=== PATIENT | female | born 1955 | race Caucasian/White ===

== ENCOUNTER 2017-10-10 10:02 | Emergency (ER) | payer SELFPAY | END 2017-10-10 13:55 | disposition left against medical advice (07) | LOC: E/R 10:02 | DX: Z53.21 Procedure and treatment not carried out due to patient leaving prior to being seen by health care provider (principal) ==

== ENCOUNTER 2017-10-10 14:10 | Emergency (ER) | payer SELFPAY | END 2017-10-10 21:30 | disposition left against medical advice (07) | LOC: E/R 14:10 | DX: Z53.21 Procedure and treatment not carried out due to patient leaving prior to being seen by health care provider (principal) ==

== ENCOUNTER 2018-04-30 16:52 | Inpatient (IN) | payer OTHER ==
[2018-04-30 17:17] LABS: ABNORMAL IP MESSAGE 1; HEMATOCRIT 33.6 % (37.0-47.0); HEMOGLOBIN 11.7 g/dl (12.0-16.0); MEAN CORPUSCULAR HEMOGLOBIN 31.6 pg (29.0-33.0); MEAN CORPUSCULAR HGB CONC 34.8 g/dl (32.0-37.0); MEAN CORPUSCULAR VOLUME 90.8 fl (82.0-101.0); MEAN PLATELET VOLUME 10.3 fl (7.4-10.4); PLATELET COUNT 446 10^3/UL (140-415); RED CELL DISTRIBUTION WIDTH 14.2 % (11.5-14.5)
[2018-04-30 17:17] LABS: WHITE BLOOD COUNT 17.6 10^3/ul (4.8-10.8)
[2018-04-30] MEDS: KETOROLAC 30 MG INJ IV (17:17)
[2018-04-30 17:24] LABS: ADD MAN DIFF? YES; POSITIVE DIFF @See below
[2018-04-30 17:38] LABS: ANION GAP 18 (8-16); BLOOD UREA NITROGEN 79 mg/dl (7-20); CALCIUM 9.8 mg/dl (8.4-10.2); CARBON DIOXIDE 21 mmol/L (21-31); CHLORIDE 101 mmol/L (97-110); GLUCOSE 94 mg/dl (70-220); POTASSIUM 4.5 mmol/L (3.5-5.1); SODIUM 135 mmol/L (135-144)
[2018-04-30 17:48] LABS: TROPONIN-I < 0.012 ng/ml (0.000-0.120)
[2018-04-30 18:07] LABS: BAND NEUTROPHILS #M 0.7 10^3/ul (0.0-0.6); BAND NEUTROPHILS % (M) 4 % (0-4); BASOPHIL #M 0.1 10^3/ul (0.0-0.0); BASOPHILS % (M) 1 % (0-2); EOSINOPHILS % (M) 4 % (0-7); GIANT THROMBO% (M) 2 % (0-0); LYMPHOCYTES #M 3.5 10^3/ul (0.8-2.9); LYMPHOCYTES % (M) 20 % (15-51); MONOCYTE #M 0.7 10^3/ul (0.3-0.9); MONOCYTES % (M) 4 % (0-11); PLATELET ESTIMATE NORMAL; SEG NEUT #M 11.9 10^3/ul (1.6-7.5); SEGMENTED NEUTROPHILS (M) % 67 % (39-77); SMUDGE%M 2 % (0-0)
[2018-04-30] MEDS: SOD CHLORIDE 0.9% 1,000 ML IV (18:57)
[2018-04-30] MEDS ORDERED: ONDANSETRON 4 MG INJ IV (19:00)
[2018-04-30] MEDS ORDERED: NACL 0.9% 3 ML SYG IV (20:00)
[2018-04-30] MEDS ORDERED: NITROGLYCERIN (SL) 0.4 MG TAB SL (20:00)
[2018-04-30] MEDS ORDERED: DOCUSATE SODIUM 100 MG CAP PO (20:00)
[2018-04-30 20:50] LABS: IRON 60 ug/dl (35-150)
[2018-04-30 20:59] LABS: % IRON SATURATION 24 % SAT (22-52); TOTAL IRON BINDING CAPACITY 254 ug/dl (241-421)
[2018-04-30 21:41] LABS: SODIUM,URINE RANDOM 23 mmol/L (30-90)
[2018-04-30 21:45] LABS: ADD UMIC YES; UR ASCORBIC ACID NEGATIVE (NEGATIVE); UR BACTERIA MANY /HPF (NONE SEEN); UR BILIRUBIN (Dip) NEGATIVE (NEGATIVE); UR BLOOD (Dip) 2+ mg/dL (NEGATIVE); UR CLARITY CLOUDY (CLEAR); UR COLOR YELLOW (YELLOW); UR GLUCOSE (Dip) NEGATIVE (NEGATIVE); UR KETONES (Dip) NEGATIVE (NEGATIVE); UR LEUKOCYTE ESTERASE (Dip) 3+ Leu/ul (NEGATIVE); UR NITRITE (Dip) NEGATIVE (NEGATIVE); UR NONSQUAMOUS EPITHELIAL CELL 1 /HPF (NONE SEEN); UR RBC 10 /HPF (0-5); UR SPECIFIC GRAVITY (Dip) 1.006 (1.003-1.030); UR SQUAMOUS EPITHELIAL CELL FEW /HPF (FEW); UR TOTAL PROTEIN (Dip) 1+ mg/dl (NEGATIVE); UR UROBILINOGEN (Dip) NEGATIVE (NEGATIVE); UR WBC 130 /HPF (0-5)
[2018-04-30 21:52] LABS: CREATININE,URINE RANDOM 40.19 mg/dl (20-320); PROTEIN/CREAT RATIO 1.21 RATIO
[2018-04-30 21:55] LABS: LACTIC ACID < 0.5 mmol/L (0.5-2.0)
[2018-04-30 22:10] LABS: OSMOLALITY 304 mOsm/kg (280-295); OSMOLALITY,URINE 203 mOsm/kg (250-1200)
[2018-05-01 00:59] LABS: CREATINE KINASE < 20 IU/L (23-200)
[2018-05-01 01:00] LABS: CK-MB 0.36 ng/ml (0.0-2.4); TROPONIN-I < 0.012 ng/ml (0.000-0.120)
[2018-05-01 06:15] LABS: ADD MAN DIFF? NO
[2018-05-01 06:18] LABS: WHITE BLOOD COUNT 17.5 10^3/ul (4.8-10.8)
[2018-05-01 06:18] LABS: BASOPHIL # 0.1 10^3/ul (0.0-0.1); BASOPHILS % 0.6 % (0.0-2.0); EOSINOPHILS # 0.3 10^3/ul (0.0-0.5); EOSINOPHILS % 1.8 % (0.0-7.0); HEMATOCRIT 30.7 % (37.0-47.0); HEMOGLOBIN 10.6 g/dl (12.0-16.0); LYMPHOCYTES # 1.9 10^3/ul (0.8-2.9); MEAN CORPUSCULAR HEMOGLOBIN 31.2 pg (29.0-33.0); MEAN CORPUSCULAR HGB CONC 34.5 g/dl (32.0-37.0); MEAN CORPUSCULAR VOLUME 90.3 fl (82.0-101.0); MONOCYTE # 0.9 10^3/ul (0.3-0.9); MONOCYTES % 5.3 % (0.0-11.0); NEUTROPHIL # 13.5 10^3/ul (1.6-7.5); NEUTROPHILS % 77.4 % (39.0-77.0); PLATELET COUNT 433 10^3/UL (140-415)
[2018-05-01] MEDS: CEFTRIAXONE 1 GM/50 ML (PMX) 50 ML IVPB (06:38)
[2018-05-01 06:50] LABS: ALANINE AMINOTRANSFERASE 20 IU/L (13-69); ALBUMIN 2.9 g/dl (3.3-4.9); ALBUMIN/GLOBULIN RATIO 0.82; ALKALINE PHOSPHATASE 183 IU/L (42-121); ANION GAP 15 (8-16); ASPARTATE AMINO TRANSFERASE 23 IU/L (15-46); BILIRUBIN,INDIRECT 0.2 mg/dl (0-1.1); BILIRUBIN,TOTAL 0.2 mg/dl (0.2-1.3); BLOOD UREA NITROGEN 68 mg/dl (7-20); CALCIUM 9.2 mg/dl (8.4-10.2); CARBON DIOXIDE 20 mmol/L (21-31); CHLORIDE 108 mmol/L (97-110); CHOL/HDL RATIO 10.1 RATIO; CHOLESTEROL 142 mg/dl (100-200); CREATININE 3.11 mg/dl (0.44-1.00); GLUCOSE 93 mg/dl (70-220); HDL CHOLESTEROL 14 mg/dl (35-98); LDL CHOLESTEROL,CALCULATED 94 mg/dl; POTASSIUM 4.8 mmol/L (3.5-5.1); SODIUM 138 mmol/L (135-144); TOTAL PROTEIN 6.4 g/dl (6.1-8.1); TRIGLYCERIDES 170 mg/dl (0-149)
[2018-05-01 06:51] LABS: CK-MB 0.27 ng/ml (0.0-2.4); TROPONIN-I < 0.012 ng/ml (0.000-0.120)
[2018-05-01 06:54] LABS: CREATINE KINASE < 20 IU/L (23-200)
[2018-05-01 06:57] LABS: HEMOGLOBIN A1C 5.3 % (0-5.9)
[2018-05-01] MEDS: ACETAMINOPHEN 325 MG TAB PO ×2 (10:02→18:48)
[2018-05-01] MEDS: SOD CHLORIDE 0.9% 1,000 ML IV ×2 (11:18→23:55)
[2018-05-01 13:11] LABS: ADD UMIC YES; UR ASCORBIC ACID NEGATIVE (NEGATIVE); UR BACTERIA FEW /HPF (NONE SEEN); UR BILIRUBIN (Dip) NEGATIVE (NEGATIVE); UR BLOOD (Dip) 2+ mg/dL (NEGATIVE); UR CLARITY CLOUDY (CLEAR); UR COLOR YELLOW (YELLOW); UR GLUCOSE (Dip) NEGATIVE (NEGATIVE); UR KETONES (Dip) NEGATIVE (NEGATIVE); UR LEUKOCYTE ESTERASE (Dip) 3+ Leu/ul (NEGATIVE); UR NITRITE (Dip) NEGATIVE (NEGATIVE); UR RBC 6 /HPF (0-5); UR SPECIFIC GRAVITY (Dip) 1.008 (1.003-1.030); UR SQUAMOUS EPITHELIAL CELL FEW /HPF (FEW); UR TOTAL PROTEIN (Dip) 1+ mg/dl (NEGATIVE); UR UROBILINOGEN (Dip) NEGATIVE (NEGATIVE); UR WBC 143 /HPF (0-5)
[2018-05-01 13:44] LABS: CREATININE,URINE RANDOM 42.11 mg/dl (20-320)
[2018-05-01 13:44] LABS: SODIUM,URINE RANDOM 32 mmol/L (30-90)
[2018-05-02] MEDS: CEFTRIAXONE 1 GM/50 ML (PMX) 50 ML IVPB (05:00)
[2018-05-02] MEDS: BISACODYL (EC) 5 MG TAB PO (05:05)
[2018-05-02 07:06] LABS: ADD MAN DIFF? NO
[2018-05-02] MEDS: ONDANSETRON 4 MG INJ IV (07:06)
[2018-05-02 07:12] LABS: BASOPHIL # 0.1 10^3/ul (0.0-0.1); BASOPHILS % 0.4 % (0.0-2.0); EOSINOPHILS # 0.1 10^3/ul (0.0-0.5); EOSINOPHILS % 0.7 % (0.0-7.0); HEMATOCRIT 30.6 % (37.0-47.0); HEMOGLOBIN 10.4 g/dl (12.0-16.0); LYMPHOCYTES # 1.6 10^3/ul (0.8-2.9); LYMPHOCYTES % 8.8 % (15.0-51.0); MEAN CORPUSCULAR HEMOGLOBIN 32.1 pg (29.0-33.0); MEAN CORPUSCULAR VOLUME 94.4 fl (82.0-101.0); MONOCYTES % 5.3 % (0.0-11.0); NEUTROPHIL # 15.2 10^3/ul (1.6-7.5); NEUTROPHILS % 82.5 % (39.0-77.0); PLATELET COUNT 459 10^3/UL (140-415); RED BLOOD COUNT 3.24 10^6/ul (4.20-5.40); RED CELL DISTRIBUTION WIDTH 13.9 % (11.5-14.5)
[2018-05-02 07:12] LABS: WHITE BLOOD COUNT 18.4 10^3/ul (4.8-10.8)
[2018-05-02 07:56] LABS: ANION GAP 14 (8-16); BLOOD UREA NITROGEN 47 mg/dl (7-20); CALCIUM 8.9 mg/dl (8.4-10.2); CARBON DIOXIDE 20 mmol/L (21-31); CHLORIDE 110 mmol/L (97-110); GLUCOSE 79 mg/dl (70-220); MAGNESIUM 1.9 mg/dl (1.7-2.5); PHOSPHORUS 4.3 mg/dl (2.5-4.9); POTASSIUM 4.4 mmol/L (3.5-5.1); SODIUM 140 mmol/L (135-144)
[2018-05-02] MEDS: ENOXAPARIN 30 MG/0.3 ML SYG SC (11:56)
[2018-05-02 13:36] LABS: ANA SCREEN NEGATIVE (NEGATIVE)
[2018-05-02] MEDS: SOD CHLORIDE 0.9% 1,000 ML IV (15:07)
[2018-05-02] MEDS: ACETAMINOPHEN 325 MG TAB PO ×2 (15:07→20:41)
[2018-05-02 16:42] LABS: CREATININE, RANDOM URINE 41 mg/dL (20-275); MICROALBUMIN 9.2 mg/dL; MICROALBUMIN/CREATININE RATIO 224 (<30)
[2018-05-03] MEDS: SOD CHLORIDE 0.9% 1,000 ML IV ×3 (02:30→18:54)
[2018-05-03] MEDS: CEFTRIAXONE 1 GM/50 ML (PMX) 50 ML IVPB (04:41)
[2018-05-03] MEDS: ACETAMINOPHEN 325 MG TAB PO ×3 (05:52→21:05)
[2018-05-03 07:48] LABS: ADD MAN DIFF? NO
[2018-05-03 07:56] LABS: WHITE BLOOD COUNT 17.4 10^3/ul (4.8-10.8)
[2018-05-03 07:56] LABS: BASOPHIL # 0.1 10^3/ul (0.0-0.1); BASOPHILS % 0.5 % (0.0-2.0); EOSINOPHILS # 0.2 10^3/ul (0.0-0.5); EOSINOPHILS % 0.9 % (0.0-7.0); HEMATOCRIT 29.8 % (37.0-47.0); HEMOGLOBIN 9.7 g/dl (12.0-16.0); LYMPHOCYTES # 1.8 10^3/ul (0.8-2.9); LYMPHOCYTES % 10.6 % (15.0-51.0); MEAN CORPUSCULAR HEMOGLOBIN 30.7 pg (29.0-33.0); MEAN CORPUSCULAR HGB CONC 32.6 g/dl (32.0-37.0); MEAN CORPUSCULAR VOLUME 94.3 fl (82.0-101.0); MONOCYTE # 0.9 10^3/ul (0.3-0.9); MONOCYTES % 5.2 % (0.0-11.0); NEUTROPHIL # 14.2 10^3/ul (1.6-7.5); NEUTROPHILS % 81.7 % (39.0-77.0); PLATELET COUNT 473 10^3/UL (140-415); RED BLOOD COUNT 3.16 10^6/ul (4.20-5.40); RED CELL DISTRIBUTION WIDTH 13.8 % (11.5-14.5)
[2018-05-03 08:24] LABS: ANION GAP 13 (8-16); BLOOD UREA NITROGEN 33 mg/dl (7-20); CALCIUM 8.7 mg/dl (8.4-10.2); CARBON DIOXIDE 20 mmol/L (21-31); CHLORIDE 112 mmol/L (97-110); CREATININE 1.93 mg/dl (0.44-1.00); GLUCOSE 100 mg/dl (70-220); MAGNESIUM 1.7 mg/dl (1.7-2.5); PHOSPHORUS 3.6 mg/dl (2.5-4.9); POTASSIUM 4.7 mmol/L (3.5-5.1); SODIUM 140 mmol/L (135-144)
[2018-05-03] MEDS: ENOXAPARIN 30 MG/0.3 ML SYG SC (08:40)
[2018-05-03] MEDS: ONDANSETRON 4 MG INJ IV (11:01)
[2018-05-03 15:57] LABS: CREATININE, RANDOM URINE 43 mg/dL (20-275); MICROALBUMIN 9.5 mg/dL; MICROALBUMIN/CREATININE RATIO 221 (<30)
[2018-05-04] MEDS: PHENYLephrine 1% 15 ML NAS SPRAY NASAL ×3 (01:27→11:55)
[2018-05-04] MEDS: CEFTRIAXONE 1 GM/50 ML (PMX) 50 ML IVPB (04:00)
[2018-05-04] MEDS: ONDANSETRON 4 MG INJ IV ×2 (04:04→18:15)
[2018-05-04 06:06] LABS: ADD MAN DIFF? NO
[2018-05-04 06:11] LABS: WHITE BLOOD COUNT 16.1 10^3/ul (4.8-10.8)
[2018-05-04 06:11] LABS: BASOPHIL # 0.1 10^3/ul (0.0-0.1); BASOPHILS % 0.7 % (0.0-2.0); EOSINOPHILS # 0.2 10^3/ul (0.0-0.5); EOSINOPHILS % 1.1 % (0.0-7.0); HEMATOCRIT 29.7 % (37.0-47.0); HEMOGLOBIN 9.7 g/dl (12.0-16.0); LYMPHOCYTES # 1.5 10^3/ul (0.8-2.9); LYMPHOCYTES % 9.3 % (15.0-51.0); MEAN CORPUSCULAR HGB CONC 32.7 g/dl (32.0-37.0); MEAN CORPUSCULAR VOLUME 94.9 fl (82.0-101.0); MEAN PLATELET VOLUME 10.5 fl (7.4-10.4); MONOCYTES % 6.2 % (0.0-11.0); NEUTROPHIL # 13.1 10^3/ul (1.6-7.5); NEUTROPHILS % 81.6 % (39.0-77.0); PLATELET COUNT 504 10^3/UL (140-415); RED BLOOD COUNT 3.13 10^6/ul (4.20-5.40)
[2018-05-04 06:41] LABS: ANION GAP 11 (8-16); BLOOD UREA NITROGEN 25 mg/dl (7-20); CALCIUM 8.7 mg/dl (8.4-10.2); CARBON DIOXIDE 21 mmol/L (21-31); CHLORIDE 114 mmol/L (97-110); CREATININE 1.77 mg/dl (0.44-1.00); GLUCOSE 85 mg/dl (70-220); MAGNESIUM 1.6 mg/dl (1.7-2.5); PHOSPHORUS 3.8 mg/dl (2.5-4.9); POTASSIUM 4.8 mmol/L (3.5-5.1); SODIUM 141 mmol/L (135-144)
[2018-05-04] MEDS: SOD CHLORIDE 0.9% 1,000 ML IV ×2 (08:58→23:24)
[2018-05-04] MEDS: ENOXAPARIN 30 MG/0.3 ML SYG SC (09:00)
[2018-05-04] MEDS: ACETAMINOPHEN 325 MG TAB PO (10:27)
[2018-05-04] MEDS: METOCLOPRAMIDE 5 MG TAB PO ×2 (13:22→20:31)
[2018-05-04] MEDS: DOCUSATE SODIUM 100 MG CAP PO ×2 (13:22→20:31)
[2018-05-04] MEDS: traMADol 50 MG TAB PO ×2 (13:25→19:41)
[2018-05-04 14:49] LABS: AMPHETAMINE/METHAMPHETAMINE NEGATIVE (NEGATIVE); BARBITURATES NEGATIVE (NEGATIVE); BENZODIAZEPINES NEGATIVE (NEGATIVE); CANNABINOIDS POSITIVE (NEGATIVE); COCAINE NEGATIVE (NEGATIVE); OPIATES NEGATIVE (NEGATIVE)
[2018-05-04] MEDS: MAGNESIUM SULFATE 2 GM/50 ML 50 ML IVPB (16:05)
[2018-05-05] MEDS: CEFTRIAXONE 1 GM/50 ML (PMX) 50 ML IVPB (04:41)
[2018-05-05 05:48] LABS: ADD MAN DIFF? NO
[2018-05-05 05:51] LABS: WHITE BLOOD COUNT 12.5 10^3/ul (4.8-10.8)
[2018-05-05 05:51] LABS: BASOPHIL # 0.1 10^3/ul (0.0-0.1); BASOPHILS % 0.8 % (0.0-2.0); EOSINOPHILS # 0.2 10^3/ul (0.0-0.5); EOSINOPHILS % 1.6 % (0.0-7.0); HEMATOCRIT 30.1 % (37.0-47.0); HEMOGLOBIN 9.6 g/dl (12.0-16.0); LYMPHOCYTES # 1.9 10^3/ul (0.8-2.9); LYMPHOCYTES % 14.8 % (15.0-51.0); MEAN CORPUSCULAR HEMOGLOBIN 30.9 pg (29.0-33.0); MEAN CORPUSCULAR HGB CONC 31.9 g/dl (32.0-37.0); MEAN CORPUSCULAR VOLUME 96.8 fl (82.0-101.0); MEAN PLATELET VOLUME 10.4 fl (7.4-10.4); MONOCYTE # 0.8 10^3/ul (0.3-0.9); MONOCYTES % 6.2 % (0.0-11.0); NEUTROPHIL # 9.5 10^3/ul (1.6-7.5); PLATELET COUNT 557 10^3/UL (140-415); RED BLOOD COUNT 3.11 10^6/ul (4.20-5.40); RED CELL DISTRIBUTION WIDTH 13.9 % (11.5-14.5)
[2018-05-05 06:27] LABS: ALBUMIN 2.8 g/dl (3.3-4.9); ALKALINE PHOSPHATASE 95 IU/L (42-121); ANION GAP 11 (8-16); ASPARTATE AMINO TRANSFERASE 21 IU/L (15-46); BLOOD UREA NITROGEN 19 mg/dl (7-20); CALCIUM 8.8 mg/dl (8.4-10.2); CARBON DIOXIDE 23 mmol/L (21-31); CHLORIDE 113 mmol/L (97-110); CREATININE 1.66 mg/dl (0.44-1.00); GLUCOSE 81 mg/dl (70-220); PHOSPHORUS 3.9 mg/dl (2.5-4.9); POTASSIUM 4.7 mmol/L (3.5-5.1); SODIUM 142 mmol/L (135-144); TOTAL PROTEIN 6.3 g/dl (6.1-8.1)
[2018-05-05 06:28] LABS: BILIRUBIN,INDIRECT 0.1 mg/dl (0-1.1); BILIRUBIN,TOTAL 0.1 mg/dl (0.2-1.3)
[2018-05-05 07:21] LABS: ALANINE AMINOTRANSFERASE 18 IU/L (13-69)
[2018-05-05] MEDS: SOD CHLORIDE 0.9% 1,000 ML IV ×2 (07:50→13:43)
[2018-05-05] MEDS: METOCLOPRAMIDE 5 MG TAB PO ×3 (08:56→20:34)
[2018-05-05] MEDS: traMADol 50 MG TAB PO ×3 (08:57→22:31)
[2018-05-05] MEDS: ENOXAPARIN 30 MG/0.3 ML SYG SC (09:00)
[2018-05-05 09:34] LABS: PROTIME 13.3 Sec (11.9-14.9)
[2018-05-05] MEDS: PHENYLephrine 1% 15 ML NAS SPRAY NASAL ×2 (10:36→22:38)
[2018-05-05] MEDS: ONDANSETRON 4 MG INJ IV (17:18)
[2018-05-05] MEDS: CIPROFLOXACIN 500 MG TAB PO (17:47)
[2018-05-05 19:24] LABS: LIPASE 138 U/L (23-300)
[2018-05-05] MEDS: ACETAMINOPHEN 325 MG TAB PO (20:27)
[2018-05-05] MEDS: DOCUSATE SODIUM 100 MG CAP PO (20:34)
[2018-05-06] MEDS: SOD CHLORIDE 0.9% 1,000 ML IV (03:47)
[2018-05-06] MEDS: CIPROFLOXACIN 500 MG TAB PO ×2 (05:12→18:09)
[2018-05-06] MEDS: ONDANSETRON 4 MG INJ IV (05:57)
[2018-05-06] MEDS: PHENYLephrine 1% 15 ML NAS SPRAY NASAL ×2 (06:53→11:32)
[2018-05-06 07:07] LABS: ADD MAN DIFF? NO
[2018-05-06 07:14] LABS: BASOPHIL # 0.1 10^3/ul (0.0-0.1); BASOPHILS % 1.1 % (0.0-2.0); EOSINOPHILS # 0.2 10^3/ul (0.0-0.5); EOSINOPHILS % 2.1 % (0.0-7.0); HEMATOCRIT 27.8 % (37.0-47.0); HEMOGLOBIN 8.8 g/dl (12.0-16.0); LYMPHOCYTES # 1.4 10^3/ul (0.8-2.9); MEAN CORPUSCULAR HEMOGLOBIN 31.2 pg (29.0-33.0); MEAN CORPUSCULAR HGB CONC 31.7 g/dl (32.0-37.0); MEAN CORPUSCULAR VOLUME 98.6 fl (82.0-101.0); MEAN PLATELET VOLUME 10.5 fl (7.4-10.4); MONOCYTE # 0.7 10^3/ul (0.3-0.9); MONOCYTES % 6.9 % (0.0-11.0); NEUTROPHILS % 76.3 % (39.0-77.0); PLATELET COUNT 550 10^3/UL (140-415); RED BLOOD COUNT 2.82 10^6/ul (4.20-5.40); RED CELL DISTRIBUTION WIDTH 13.6 % (11.5-14.5)
[2018-05-06 07:14] LABS: WHITE BLOOD COUNT 10.4 10^3/ul (4.8-10.8)
[2018-05-06 07:59] LABS: ALANINE AMINOTRANSFERASE 16 IU/L (13-69); ALBUMIN 2.4 g/dl (3.3-4.9); ALKALINE PHOSPHATASE 85 IU/L (42-121); ANION GAP 9 (8-16); ASPARTATE AMINO TRANSFERASE 24 IU/L (15-46); BILIRUBIN,INDIRECT 0.1 mg/dl (0-1.1); BILIRUBIN,TOTAL 0.1 mg/dl (0.2-1.3); BLOOD UREA NITROGEN 14 mg/dl (7-20); CALCIUM 8.9 mg/dl (8.4-10.2); CARBON DIOXIDE 25 mmol/L (21-31); CHLORIDE 111 mmol/L (97-110); CREATININE 1.53 mg/dl (0.44-1.00); GLUCOSE 80 mg/dl (70-220); POTASSIUM 4.7 mmol/L (3.5-5.1); SODIUM 140 mmol/L (135-144); TOTAL PROTEIN 5.8 g/dl (6.1-8.1)
[2018-05-06] MEDS: ENOXAPARIN 30 MG/0.3 ML SYG SC (09:28)
[2018-05-06] MEDS: traMADol 50 MG TAB PO (15:36)
== END 2018-05-06 21:50 | disposition home or self-care (01) | DRG 871 ==
LOC: E/R 16:52 → 2NE 05-02 13:55 → TEL 18:51
DX: A41.9 Sepsis, unspecified organism (principal); N17.0 Acute kidney failure with tubular necrosis; N30.00 Acute cystitis without hematuria; R65.20 Severe sepsis without septic shock; B96.20 Unspecified Escherichia coli [E. coli] as the cause of diseases classified elsewhere; D64.9 Anemia, unspecified; I10 Essential (primary) hypertension; E83.9 Disorder of mineral metabolism, unspecified; K80.20 Calculus of gallbladder without cholecystitis without obstruction; M16.0 Bilateral primary osteoarthritis of hip; R07.89 Other chest pain
CPT/HCPCS: 36415; 71045; 73510; 74018; 74176; 76775; 80048; 80053; 80061; 80307; 81001; 81003; 82043; 82550; 82553; 82570; 82728; 83036; 83540; 83605; 83690; 83735; 83930; 83935; 84100; 84155; 84300; 84443; 84484; 85025; 85610; 86038; 87040; 87086; 93005; 93306; 96374; 99285-25

== ENCOUNTER 2018-10-03 08:09 | Emergency (ER) | payer OTHER ==
[2018-10-03 08:53] LABS: ADD MAN DIFF? NO
[2018-10-03 08:54] LABS: WHITE BLOOD COUNT 6.4 10^3/ul (4.8-10.8)
[2018-10-03 08:54] LABS: BASOPHIL # 0.1 10^3/ul (0.0-0.1); BASOPHILS % 1.1 % (0.0-2.0); EOSINOPHILS # 0.1 10^3/ul (0.0-0.5); EOSINOPHILS % 1.2 % (0.0-7.0); HEMATOCRIT 41.9 % (37.0-47.0); HEMOGLOBIN 13.8 g/dl (12.0-16.0); LYMPHOCYTES # 1.7 10^3/ul (0.8-2.9); LYMPHOCYTES % 26.1 % (15.0-51.0); MEAN CORPUSCULAR HEMOGLOBIN 29.7 pg (29.0-33.0); MEAN CORPUSCULAR HGB CONC 32.9 g/dl (32.0-37.0); MEAN CORPUSCULAR VOLUME 90.3 fl (82.0-101.0); MEAN PLATELET VOLUME 11.5 fl (7.4-10.4); MONOCYTE # 0.4 10^3/ul (0.3-0.9); MONOCYTES % 5.9 % (0.0-11.0); NEUTROPHIL # 4.2 10^3/ul (1.6-7.5); NEUTROPHILS % 65.4 % (39.0-77.0); RED BLOOD COUNT 4.64 10^6/ul (4.20-5.40); RED CELL DISTRIBUTION WIDTH 15.9 % (11.5-14.5)
[2018-10-03 08:57] LABS: POSITIVE DIFF @See below
[2018-10-03 09:02] LABS: PLATELET COUNT 237 10^3/UL (140-415)
[2018-10-03 09:54] LABS: ANION GAP 10 (5-13); BLOOD UREA NITROGEN 10 mg/dl (7-20); CALCIUM 10.1 mg/dl (8.4-10.2); CARBON DIOXIDE 27 mmol/L (21-31); CHLORIDE 101 mmol/L (97-110); CREATININE 0.92 mg/dl (0.44-1.00); Estimated GFR > 60 mL/min (>60); GLUCOSE 89 mg/dl (70-220); SODIUM 138 mmol/L (135-144)
[2018-10-03 10:05] LABS: TROPONIN-I < 0.012 ng/ml (0.000-0.120)
[2018-10-03 10:06] LABS: POTASSIUM 3.6 mmol/L (3.5-5.1)
[2018-10-03] MEDS: HYDROCODONE/APAP (5/325) TAB PO (11:31)
== END 2018-10-03 11:12 | disposition home or self-care (01) ==
LOC: E/R 08:09
DX: R07.9 Chest pain, unspecified (principal); I10 Essential (primary) hypertension; F43.9 Reaction to severe stress, unspecified
CPT/HCPCS: 36415; 71045; 80048; 84484; 85025; 93005; 99285-25

== ENCOUNTER 2019-01-09 14:38 | Emergency (ER) | payer SELFPAY, OTHER ==
[2019-01-09] MEDS ORDERED: SOD CHLORIDE 0.9% 1,000 ML IV (15:18)
[2019-01-09] MEDS ORDERED: ONDANSETRON 4 MG INJ IV (15:18)
[2019-01-09] MEDS ORDERED: DICYCLOMINE 20 MG INJ IM (15:30)
[2019-01-09 15:38] LABS: ADD MAN DIFF? NO
[2019-01-09 15:43] LABS: WHITE BLOOD COUNT 7.3 10^3/ul (4.8-10.8)
[2019-01-09 15:43] LABS: BASOPHIL # 0.1 10^3/ul (0.0-0.1); BASOPHILS % 1.2 % (0.0-2.0); EOSINOPHILS # 0.1 10^3/ul (0.0-0.5); EOSINOPHILS % 1.8 % (0.0-7.0); HEMATOCRIT 35.3 % (37.0-47.0); HEMOGLOBIN 12.1 g/dl (12.0-16.0); LYMPHOCYTES # 2.7 10^3/ul (0.8-2.9); LYMPHOCYTES % 37.3 % (15.0-51.0); MEAN CORPUSCULAR HEMOGLOBIN 32.5 pg (29.0-33.0); MEAN CORPUSCULAR HGB CONC 34.3 g/dl (32.0-37.0); MEAN CORPUSCULAR VOLUME 94.9 fl (82.0-101.0); MEAN PLATELET VOLUME 10.4 fl (7.4-10.4); MONOCYTE # 0.4 10^3/ul (0.3-0.9); MONOCYTES % 4.8 % (0.0-11.0); NEUTROPHILS % 54.8 % (39.0-77.0); PLATELET COUNT 176 10^3/UL (140-415); RED BLOOD COUNT 3.72 10^6/ul (4.20-5.40); RED CELL DISTRIBUTION WIDTH 13.6 % (11.5-14.5)
[2019-01-09 16:02] LABS: ALANINE AMINOTRANSFERASE 15 IU/L (13-69); ALBUMIN 4.1 g/dl (3.3-4.9); ALBUMIN/GLOBULIN RATIO 1.28; ALKALINE PHOSPHATASE 61 IU/L (42-121); ANION GAP 14 (5-13); ASPARTATE AMINO TRANSFERASE 52 IU/L (15-46); BILIRUBIN,INDIRECT 0.2 mg/dl (0-1.1); BILIRUBIN,TOTAL 0.2 mg/dl (0.2-1.3); BLOOD UREA NITROGEN 11 mg/dl (7-20); CALCIUM 9.3 mg/dl (8.4-10.2); CARBON DIOXIDE 19 mmol/L (21-31); CHLORIDE 103 mmol/L (97-110); CREATININE 0.76 mg/dl (0.44-1.00); Estimated GFR > 60 mL/min (>60); GLUCOSE 106 mg/dl (70-220); LIPASE 271 U/L (23-300); POTASSIUM 3.6 mmol/L (3.5-5.1); SODIUM 136 mmol/L (135-144); TOTAL PROTEIN 7.3 g/dl (6.1-8.1)
[2019-01-09 16:14] LABS: TROPONIN-I < 0.012 ng/ml (0.000-0.120)
== END 2019-01-09 16:20 | disposition left against medical advice (07) ==
LOC: E/R 14:38
DX: E86.0 Dehydration (principal); R11.2 Nausea with vomiting, unspecified; R53.1 Weakness; Z59.0 Homelessness; Z72.89 Other problems related to lifestyle; Z87.891 Personal history of nicotine dependence
CPT/HCPCS: 80053; 83690; 84484; 85025; 99283

== ENCOUNTER 2019-03-18 13:43 | Emergency (ER) | payer SELFPAY | END 2019-03-18 15:25 | disposition left against medical advice (07) | LOC: FTE 15:25 | DX: R50.9 Fever, unspecified (principal) | CPT/HCPCS: 99282 ==